=== PATIENT | male | born 1995 | race Asian ===

== ENCOUNTER 2017-07-01 16:18 | Emergency (ER) | payer OTHER ==
[2017-07-01 16:24] VITALS: BP 146/75
--- NOTE | 2017-07-01 19:53 | RAD ---
HISTORY: Fall, left knee pain, trauma COMPARISONS: None VIEWS: 4, Frontal, lateral, axial, and oblique views of the left knee FINDINGS: BONE DENSITY: Normal. BONES: There is no displaced fracture. JOINTS: There is no arthropathy. There is no suprapatellar joint effusion or lipohemarthrosis. ALIGNMENT: There is no dislocation. SOFT TISSUES: Unremarkable. OTHER FINDINGS: None. IMPRESSION: NO ACUTE OSSEOUS INJURY. IF SYMPTOMS PERSIST, RECOMMEND REPEAT IMAGING.
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
== END 2017-07-01 20:28 | disposition home or self-care (01) ==
LOC: ED 16:18
DX: S80.02XA Contusion of left knee, initial encounter (principal); V19.9XXA Pedal cyclist (driver) (passenger) injured in unspecified traffic accident, initial encounter; Y93.9 Activity, unspecified; Y92.9 Unspecified place or not applicable; Y99.9 Unspecified external cause status
CPT/HCPCS: 99282